=== PATIENT | female | born 1955 | race Caucasian/White ===

== ENCOUNTER 2024-02-01 00:13 | Emergency (ER) | payer OTHER ==
[2024-02-01] MEDS ORDERED: NOREPINEPHRINE BITARTRATE/D5W 4 MG/250 ML KIT IV ONE (00:34)
--- NOTE | 2024-02-01 01:22 | ER ---
Nurse's Notes [facility] Name: Alexandra Blankenship Age: 68 yrs Sex: Female : 1955 Arrival Date: 02/01/2024 Time: 00:13 Bed 3 Private MD: Diagnosis: Acute respiratory failure;Acute CVA with left hemiparesis, acute hypoxic respiratory failure, acute myocardial infarction, ventricular fibrillation, cardiac arrest Presentation: 01/31 00:19 Chief complaint: EMS states: patient toned out EMS due to feeling like she lost control al5 of her body. EMS arrive on scene and patient showing signs of stroke with L sided deficits. EMS arrives to facility and code stroke called. this nurse took patient immediately to CT scan with EMS while receiving report with doctor following. was notified [facility] was 30-40 minutes prior to EMS arrival to facility. while performing NIHSS assessment on the way to CT scan, noticed the patient had no movement whatsoever. assessed patient for pulse. patient had no pulse and CPR was initiated and called overhead. patient brought back to ER room 3 for ACLS interventions. 00:19 Coronavirus screen: At this time, the client does not indicate any symptoms associated al5 with coronavirus-19. Ebola Screen: No symptoms or risks identified at this time. An acute neurological deficit is present. The charge nurse has been notified. The patient has been moved to a treatment area. Pre-hospital glucose is not applicable to this patient. Risk Assessment: Do you want to hurt yourself or someone else? Unable to obtain. Onset of symptoms was January 31, 2024 at 23:45. 00:19 Method Of Arrival: EMS: [facility] al5 00:19 Acuity: CANDI 1 al5 00:19 Care prior to arrival: nonrebreather IV initiated. 20 GA, in the right antecubital area.al5 00:19 Compressions began at 00:19. al5 Triage Assessment: 00:19 The onset of the patients symptoms was January 31, 2024 at 23:45. General: Appears al5 unresponsive. Behavior is unresponsive. Pain: Unable to use pain scale. Patient is unresponsive. EENT: No signs and/or symptoms were reported regarding the EENT system. Neuro: Level of Consciousness is eyes open, but unresponsive.. Oriented to none Biomedical Engineering Technologist are none. no strength, unable to grab hands. Speech no speech. Cardiovascular: skin cool, pale, mottled, dry. Respiratory: patient on nonrebreather. GI: Abdomen is non-distended, obese. : No signs and/or symptoms were reported regarding the genitourinary system. Derm: Skin is dry, Skin is dusky, mottled, pale, Skin temperature is cool. Musculoskeletal: patient weakness in all extremities. - Family history:: not pertinent. Screenin:19 Abuse screen: Denies threats or abuse. Denies injuries from another. Nutritional al5 screening: No deficits noted. Tuberculosis screening: No symptoms or risk factors identified. 05:31 [facility] ED Fall Risk Assessment (Adult) Altered Elimination. ha1 Assessment: 00:20 Cardiac rhythm is. Cardiac rhythm is asystole. al5 00:20 CPR assessment: unresponsive, no respiratory effort, cyanotic, pale. al5 00:24 Reassessment: pulse check completed, patient asystole, CPR continued. al5 00:25 Reassessment: pulse check completed, patient PEA, CPR continued. al5 00:30 Reassessment: pulse check completed, patient in sinus tach. al5 00:46 Reassessment: patient going into vfib, code blue called overhead. CPR re-initiated. MD rodríguez at bedside. 00:46 Reassessment: patient shocked with 200 joules, CPR continued. al5 00:48 Reassessment: patient in vfib, patient shocked with 200 joules. CPR continued. al5 00:51 Reassessment: patient in vfib, patient shocked with 200 joules, CPR continued. al5 00:52 Reassessment: pulse check completed, patient in asystole, CPR continued. al5 00:55 Reassessment: pulse check completed, patient in PEA, CPR continued. al5 00:58 Reassessment: pulse checked completed, patient in PEA, CPR continued. al5 01:00 Reassessment: pulse check completed, patient in asystole. provider call time of al5 at this time. 05:01 Reassessment: contacted [employer], spoke with spring zavala. referral number al5 [id number]. Vital Signs: 00:19 Weight 90.72 kg; al5 00:30 BP 52 / 26; Pulse 128; Resp 34; Pulse Ox 97% on ETT ambu; al5 00:31 BP 50 / 29; Pulse 69; Pulse Ox 96% on ETT vent; al5 00:45 BP 114 / 30; Pulse 118; Pulse Ox 96% on ETT vent; al5 01:00 BP 0 / 0; Pulse 0; Resp 0; al5 Ravi Coma Score: 01:10 Eye Response: none(1). Motor Response: none(1). Verbal Response: none(1). Total: 3. sp4 ED Course: 00:16 Patient arrived in ED. al5 00:16 Patient has correct armband on for positive identification. nursing staff at bedside. ha1 00:18 Amrik Dela Cruz MD is Attending Physician. sp4 00:24 Inserted saline lock: 20 gauge in left antecubital area, using aseptic technique. al5 00:26 Assisted provider with intubation using 8.0 mm ETT via oral route. ET tube secured at al5 26cm at the teeth. Set up intubation tray. Intubated by Amrik Dela Cruz MD Placement verified by CO2 detector w/ + color change, auscultating bilateral breath sounds. 00:29 Assisted provider with central line placement. Set up central line tray. Triple lumen al5 line placed in right femoral. Line placed by Amrik Dela Cruz MD Placement verified by blood return, Dressed with Tegaderm, Blood was collected. Was handwashing/sanitizing done immediately prior to procedure? Yes. Was procedure site sterilized? Yes, with chlorhexidine. Was the site allowed to dry? Yes. Was local anesthetic and/or sedation utilized? No. During the procedure, did the Practitioner(s) maintain a sterile field? Yes. Were unused ports clamped during insertion? Yes. Was a 2nd qualified MD obtained after 3 unsuccessful insertion attempts? No. Was blood aspirated from each lumen? Yes. After the procedure, did the Practitioner(s) clean the site and apply a sterile dressing? Yes. 00:45 [address] [place] to get next of kin. kmf 00:48 XRAY Chest (1 view) In Process Unspecified. EDMS 01:21 Amrik Dela Cruz MD is Pronouncing Provider. sp4 01:45 Alize Glover RN is Primary Nurse. al5 01:55 Triage completed. al5 04:35 ordered crash cart. kmf Administered Medications: 00:20 Drug: EPINEPHrine 0.1mg/mL 1:10,000 1 mg IVP once Route: IVP; Site: right antecubital; al5 05:29 Follow up: Response: No adverse reaction al5 00:21 Drug: Calcium Chloride 1 grams IVP once Route: IVP; Site: right antecubital; al5 05:29 Follow up: Response: No adverse reaction al5 00:22 Drug: Sodium Bicarbonate 1 amp IVP once; (50 mL); equals 50 mEq Route: IVP; Site: right al5 antecubital; 05:30 Follow up: Response: No adverse reaction al5 00:23 Drug: D50W 50 ml IVP once; (1 amp) Route: IVP; Site: right antecubital; al5 05:30 Follow up: Response: No adverse reaction al5 00:24 Drug: EPINEPHrine 0.1mg/mL 1:10,000 1 mg IVP once Route: IVP; Site: left antecubital; al5 05:29 Follow up: Response: No adverse reaction al5 00:25 Drug: NS 0.9% IV 1000 ml IV at 1000 ml once; to be given as a bolus over 60 minutes al5 Route: IV; Rate: 1000 ml; Site: left antecubital; 00:45 Follow up: Response: No adverse reaction; IV Status: Completed infusion; IV Intake: al5 1000ml 00:25 Drug: Sodium Bicarbonate 1 amp IVP once; (50 mL); equals 50 mEq Route: IVP; Site: left al5 antecubital; 05:29 Follow up: Response: No adverse reaction al5 00:26 Drug: EPINEPHrine 0.1mg/mL 1:10,000 1 mg IVP once Route: IVP; Site: left antecubital; al5 05:29 Follow up: Response: No adverse reaction al5 00:29 Drug: Calcium Chloride 1 grams IVP once Route: IVP; Site: left antecubital; al5 05:29 Follow up: Response: No adverse reaction al5 00:29 Drug: Atropine 1 mg IVP once Route: IVP; Site: left antecubital; al5 05:29 Follow up: Response: No adverse reaction al5 05:29 Follow up: Response: No adverse reaction al5 00:36 Drug: Norepinephrine IV 0.1 mcg/kg/min IV at calculated rate See Administration al5 Instructions; (Standard concentration 4 mg / 250 mL D5W); Recommended max rate 3 mcg/kg/min; Titrate 0.05 mcg/kg/min as often as every 5 minutes to achieve goal (see titration policy); Goal parameter MAP greater than 65 mmHg. {Note: per MD, start at max rate.} Route: IV; Rate: calculated rate; Site: right femoral; 05:30 Follow up: Response: No adverse reaction; IV Status: Order to discontinue infusion al5 00:46 Drug: EPINEPHrine 0.1mg/mL 1:10,000 1 mg IVP once Route: IVP; Site: left antecubital; al5 05:28 Follow up: Response: No adverse reaction al5 00:46 Drug: amiodarone 300 mg IVP once Route: IVP; Site: left antecubital; al5 :28 Follow up: Response: No adverse reaction al5 00:49 Drug: EPINEPHrine 0.1mg/mL 1:10,000 1 mg IVP once Route: IVP; Site: left antecubital; al5 05:28 Follow up: Response: No adverse reaction al5 00:53 Drug: Atropine 1 mg IVP once Route: IVP; Site: left antecubital; al5 05:28 Follow up: Response: No adverse reaction al5 00:53 Drug: EPINEPHrine 0.1mg/mL 1:10,000 1 mg IVP once Route: IVP; Site: left antecubital; al5 05:28 Follow up: Response: No adverse reaction al5 00:56 Drug: EPINEPHrine 0.1mg/mL 1:10,000 1 mg IVP once Route: IVP; Site: left antecubital; al5 05:28 Follow up: Response: No adverse reaction al5 00:58 Drug: dopamine (400mg/250mL Premix) 5 mcg/kg/min IV at calculated rate See al5 Administration Instructions; Recommended max rate 20 mcg/kg/min; Titrate 2.5 mcg/kg/min as often as every 5 minutes to achieve goal (see titration policy); Goal parameter MAP greater than 65 mmHg. [*Low doses 1 to 4 mcg/kg/min may result in hypotension, decreased SVR*] {Note: per , start at max rate of 20 mcg/kg/min.} Route: IV; Rate: calculated rate; Site: right femoral; 05:28 Follow up: Response: No adverse reaction; IV Status: Order to discontinue infusion al5 02:33 Not Given (Patient ): ns 0.9% 1000 ml IV at 125 bolus Per protocol; to be given al5 as a bolus over 60 minutes 02:33 Not Given (Patient ): mupirocinointment 2 % 1 application Topical once al5 Intake: 00:45 IV: 1000ml; Total: 1000ml. al5 Outcome: 05:30 Outcome Patient al5 05:30 Patient : Time of 01:00 Pronounced by Amrik Dela Cruz MD Body released to [place] notified 05:30 Condition: 05:33 Patient left the ED. ha1 Signatures: Dispatcher [employer] EDMS Terra Lopez, RN RN ha1 Amrik Dela Cruz MD MD [facility] Marlyn Zabala [facility] Alize Glover RN RN al5 Corrections: (The following items were deleted from the chart) 02:26 01:00 BP 0 / 0; Pulse 0bpm; Resp 0bpm; Pulse Ox ET / Ambu; al5 al5 02:26 01:00 BP 0 / 0; Pulse 0bpm; Resp 0bpm; Pulse Ox ET / Ambu; al5 al5
--- NOTE | 2024-02-01 01:22 | EDPHYS ---
Physician Documentation [facility] Name: Alexandra Blankenship Age: 68 yrs Sex: Female : 1955 Arrival Date: 02/01/2024 Time: 00:13 Bed 3 Private MD: ED Physician Amrik Del aCruz HPI: 01/31 00:19 This 68 yrs old Female presents to ER via Unassigned with complaints of resp sp4 failure . 01:10 Patient arrived at 0015 with EMS with report of acute left-sided weakness associated sp4 with altered mental status and agitation. EMS reported patient called them for acute weakness on the left side starting about 40 minutes prior to arrival to the ER. Patient on arrival is unresponsive and slumped onto the left side. Patient on arrival has 20-gauge IV in the right AC. Patient was taken straight to CAT scan on EMS stretcher and code stroke was called at 0016. At 0019 it was noticed that patient had no pulses and agonal respiration and CPR was initiated at 0019. Patient was brought to the emergency department and ACLS efforts were initiated. Patient was emergently intubated on arrival to the ER stretcher. . - Family history:: not pertinent. ROS: 01:10 Constitutional: ROS positive for reported left-sided weakness and altered mental status sp4 01:10 All other systems are negative, 01:10 Unable to obtain ROS due to altered mental status, Exam: 01:10 Constitutional: This is a well developed, well nourished patient , patient is pale sp4 ill-appearing toxic appearing on arrival unresponsive GCS of 3. Head/Face: Normocephalic, atraumatic. Eyes: Pupils are dilated and fixed on the initial exam in the room #3. After the patient was moved from EMS stretcher to ER stretcher patient has no extraocular eye movements and dilated and fixed pupils. ENT: Nares patent. No nasal discharge, no septal abnormalities noted. Positive oropharyngeal secretions. Neck: Trachea midline, no thyromegaly or masses palpated, and no cervical lymphadenopathy. Chest/axilla: Normal chest wall appearance and motion. No deformity Cardiovascular: No palpable pulses in peripheral or central locations. Respiratory: Agonal respirations on arrival Abdomen/GI: Soft, no distention Back: No deformities Female : Normal external genitalia. Incontinent of bowel and bladder Skin: Warm, dry with peripheral and central cyanosis no rashes no signs of injuries MS/ Extremity: No deformities, no palpable peripheral pulses Neuro: Unresponsive, GCS of 3 additional exam is not possible 01:10 ECG was reviewed by the Attending Physician. EKG at 0038 wide QRS tachycardia left sp4 axis deviation, concerning for acute MO, ST elevations noted 2 , 3 aVF, V4 V5 V6 Vital Signs: 00:19 Weight 90.72 kg; al5 00:30 BP 52 / 26; Pulse 128; Resp 34; Pulse Ox 97% on ETT ambu; al5 00:31 BP 50 / 29; Pulse 69; Pulse Ox 96% on ETT vent; al5 00:45 BP 114 / 30; Pulse 118; Pulse Ox 96% on ETT vent; al5 01:00 BP 0 / 0; Pulse 0; Resp 0; al5 Ravi Coma Score: 01:10 Eye Response: none(1). Motor Response: none(1). Verbal Response: none(1). Total: 3. sp4 Procedures: 00:44 Intubation: Ventilated with 100% NRB prior to procedure. Intubated orally using S4 sp4 Glyde scope with 8.0 mm ETT. was successful on first attempt. Ventilated with Ambu bag. ventilator. Tube secured with ETT perez at center of mouth measured 26 cm at lip. Placement verified by CXR, CO2 detector with (+) color change, auscultating bilateral breath sounds, O2 saturation after procedure was 86 %. Patient tolerated well. Central Line: the site was prepped with in sterile fashion, a triple lumen catheter was inserted, in the right femoral vein, in 1 attempts. placement was verified, by blood return, Ultrasound guided CVL , the site was dressed with 4X4s, Tegaderm, using sterile technique, the patient tolerated the procedure, well. MDM: 00:44 Medical Screening Exam initiated sp4 01:10 Differential Diagnosis altered mental status, sepsis, flu, Hemorrhagic stroke, ischemic sp4 stroke , acute MO. 01:20 Data reviewed: vital signs, nurses notes, EMS record, radiologic studies. sp4 01:22 ED course: CPR was initiated at 0019 and CAT scan. On arrival to the emergency room sp4 patient was emergently intubated with size 8 ET tube and right femoral CVL placed emergently with ultrasound guidance. Full ACLS measures administered with multiple doses of IV epinephrine, 2 doses of sodium bicarbonate, 2 doses of calcium chloride, 1 dose of atropine IV, Levophed infusion and dopamine infusion. Also IV fluids given. Initially ROSC was obtained with wide-complex tachycardia at 134 bpm and palpable pulses. patient then manifested with several runs of ventricular fibrillation, and was defibrillated a total of 3 times. After aggressive resuscitation and ACLS medications patient manifested with global heart failure as evidenced by bedside ultrasound. At 0100 there are no palpable pulses there is PEA on the monitor, no signs of brainstem reflexes. Pupils are dilated and fixed patient is unresponsive, negative oculocephalic reflexes negative gag reflex. At 0100 further resuscitative efforts were stopped after total of 41 minutes of ACLS and CPR. Time of 0100 02/01/2024. . 02:29 ED course: EXAM: XR Chest, 1 View CLINICAL HISTORY: Chest pain. TECHNIQUE: Frontal view sp4 of the chest. COMPARISON: No relevant prior studies available. FINDINGS: Lungs: Coarsened interstitial markings. No focal consolidation. Pleural space: Unremarkable. No pneumothorax. Heart: Unremarkable. No cardiomegaly. Mediastinum: Unremarkable. Normal mediastinal contour. Bones/joints: Unremarkable. No acute fracture. Vasculature: Thoracic aortic atherosclerosis. Tubes, lines and devices: Endotracheal tube tip projects 2 cm proximal to the silke. IMPRESSION: 1. Endotracheal tube tip projects 2 cm proximal to the silke. 2. No acute disease.. 12 00:39 Order name: XRAY Chest (1 view) sp4 01/31 00:39 Order name: Cardiac monitoring; Complete Time: 02: sp4 01/31 00:39 Order name: EKG - Nurse/Tech; Complete Time: 02:28 sp4 01/31 00:39 Order name: IV Saline Lock; Complete Time: 02: sp4 01/31 00:39 Order name: O2 Per Protocol; Complete Time: 02: sp4 01/31 00:39 Order name: O2 Sat Monitoring; Complete Time: 02: sp4 01/31 00:41 Order name: Central Line Dressing Kit; Complete Time: 02: sp4 01/31 00:41 Order name: Central Line Kit; Complete Time: 02: sp4 01/31 00:41 Order name: Chlorhexidine prep; Complete Time: 02: sp4 01/31 00:41 Order name: Line Caps x3; Complete Time: sp4 01/31 00:41 Order name: NS Flushes x3; Complete Time: sp4 01/31 00:41 Order name: Sterile Gloves; Complete Time: sp4 01/31 00:41 Order name: Sterile Probe Cover; Complete Time: sp4 01/31 00:41 Order name: Intubation Setup; Complete Time: sp4 EC:10 Rate is 134 beats/min. Rhythm is regular. QRS interval is prolonged. ST Segment is sp4 elevated in leads II, III, aVF, V4, V5, V6. Clinical impression: Acute MO. Interpreted by me. Reviewed by me. Administered Medications: 00:20 Drug: EPINEPHrine 0.1mg/mL 1:10,000 1 mg IVP once Route: IVP; Site: right antecubital; al5 05:29 Follow up: Response: No adverse reaction al5 00:21 Drug: Calcium Chloride 1 grams IVP once Route: IVP; Site: right antecubital; al5 05:29 Follow up: Response: No adverse reaction al5 00:22 Drug: Sodium Bicarbonate 1 amp IVP once; (50 mL); equals 50 mEq Route: IVP; Site: right al5 antecubital; 05:30 Follow up: Response: No adverse reaction al5 00:23 Drug: D50W 50 ml IVP once; (1 amp) Route: IVP; Site: right antecubital; al5 05:30 Follow up: Response: No adverse reaction al5 00:24 Drug: EPINEPHrine 0.1mg/mL 1:10,000 1 mg IVP once Route: IVP; Site: left antecubital; al5 05:29 Follow up: Response: No adverse reaction al5 00:25 Drug: NS 0.9% IV 1000 ml IV at 1000 ml once; to be given as a bolus over 60 minutes al5 Route: IV; Rate: 1000 ml; Site: left antecubital; 00:45 Follow up: Response: No adverse reaction; IV Status: Completed infusion; IV Intake: al5 1000ml 00:25 Drug: Sodium Bicarbonate 1 amp IVP once; (50 mL); equals 50 mEq Route: IVP; Site: left al5 antecubital; 05:29 Follow up: Response: No adverse reaction al5 00:26 Drug: EPINEPHrine 0.1mg/mL 1:10,000 1 mg IVP once Route: IVP; Site: left antecubital; al5 05:29 Follow up: Response: No adverse reaction al5 00:29 Drug: Calcium Chloride 1 grams IVP once Route: IVP; Site: left antecubital; al5 05:29 Follow up: Response: No adverse reaction al5 00:29 Drug: Atropine 1 mg IVP once Route: IVP; Site: left antecubital; al5 05:29 Follow up: Response: No adverse reaction al5 05: Follow up: Response: No adverse reaction al5 00:36 Drug: Norepinephrine IV 0.1 mcg/kg/min IV at calculated rate See Administration al5 Instructions; (Standard concentration 4 mg / 250 mL D5W); Recommended max rate 3 mcg/kg/min; Titrate 0.05 mcg/kg/min as often as every 5 minutes to achieve goal (see titration policy); Goal parameter MAP greater than 65 mmHg. {Note: per MD, start at max rate.} Route: IV; Rate: calculated rate; Site: right femoral; 30 Follow up: Response: No adverse reaction; IV Status: Order to discontinue infusion al5 00:46 Drug: EPINEPHrine 0.1mg/mL 1:10,000 1 mg IVP once Route: IVP; Site: left antecubital; al5 05:28 Follow up: Response: No adverse reaction al5 00:46 Drug: amiodarone 300 mg IVP once Route: IVP; Site: left antecubital; al5 05:28 Follow up: Response: No adverse reaction al5 00:49 Drug: EPINEPHrine 0.1mg/mL 1:10,000 1 mg IVP once Route: IVP; Site: left antecubital; al5 05:28 Follow up: Response: No adverse reaction al5 00:53 Drug: Atropine 1 mg IVP once Route: IVP; Site: left antecubital; al5 05:28 Follow up: Response: No adverse reaction al5 00:53 Drug: EPINEPHrine 0.1mg/mL 1:10,000 1 mg IVP once Route: IVP; Site: left antecubital; al5 05:28 Follow up: Response: No adverse reaction al5 00:56 Drug: EPINEPHrine 0.1mg/mL 1:10,000 1 mg IVP once Route: IVP; Site: left antecubital; al5 05:28 Follow up: Response: No adverse reaction al5 00:58 Drug: dopamine (400mg/250mL Premix) 5 mcg/kg/min IV at calculated rate See al5 Administration Instructions; Recommended max rate 20 mcg/kg/min; Titrate 2.5 mcg/kg/min as often as every 5 minutes to achieve goal (see titration policy); Goal parameter MAP greater than 65 mmHg. [*Low doses 1 to 4 mcg/kg/min may result in hypotension, decreased SVR*] {Note: per MD, start at max rate of 20 mcg/kg/min.} Route: IV; Rate: calculated rate; Site: right femoral; 05:28 Follow up: Response: No adverse reaction; IV Status: Order to discontinue infusion al5 02:33 Not Given (Patient ): ns 0.9% 1000 ml IV at 125 bolus Per protocol; to be given al5 as a bolus over 60 minutes 02:33 Not Given (Patient ): mupirocinointment 2 % 1 application Topical once al5 Disposition: 01:20 . sp4 Disposition Summary: 02/01/24 01:22 Patient Notes: Location: [facility] sp4 Pronouncing Physician: Amrik Dela Cruz Time of : 01:00 02/01/2024 sp4 Diagnosis - Acute respiratory failure sp4 - Acute CVA with left hemiparesis, acute hypoxic respiratory failure, acute sp4 myocardial infarction, ventricular fibrillation, cardiac arrest Critical care time excluding procedures: 01:20 Critical care time: Bedside Care: 36 minutes. Total time: 36 minutes sp4 Signatures: Dispatcher [employer] Amrik Manzano MD MD sp4 Alize Glover RN RN al5 Corrections: (The following items were deleted from the chart) 00:40 00:40 BASIC METABOLIC PANEL+C.LAB.BRZ ordered. EDMS EDMS 00:40 00:40 CBC+H.LAB.BRZ ordered. EDMS EDMS 00:40 00:40 HEPATIC FUNCTION+C.LAB.BRZ ordered. EDMS EDMS 00:40 00:40 MAGNESIUM+C.LAB.BRZ ordered. EDMS EDMS 00:40 00:40 PROBNP+C.LAB.BRZ ordered. EDMS EDMS 00:40 00:40 PROTIME (+INR)+COAG.LAB.BRZ ordered. EDMS EDMS 00:40 00:40 Troponin High Sensitivity+C.LAB.BRZ ordered. EDMS EDMS 00:40 00:40 Chest Single View+RAD.RAD.BRZ ordered. EDMS EDMS 00: 00:42 C-REACTIVE PROTEIN+C.LAB.BRZ ordered. EDMS EDMS 00: 00:42 BLOOD CULTURE*+BA.LAB.BRZ ordered. EDMS EDMS 00:42 00:42 Arterial Blood Gas+RC.LAB.BRZ ordered. EDMS EDMS 01:25 00:19 CT-STROKE BRAIN W/O CONTRAST+CT.RAD.BRZ ordered. EDMS EDMS 01: 00:42 Head Angio+CT.RAD.BRZ ordered. EDMS EDMS 01: 00:43 Neck Angio+CT.RAD.BRZ ordered. EDMS EDMS 02: 00:39 Labs collected and sent ordered. sp4 al5 02: 00:41 Zhou ordered. sp4 al5 02: 00:41 Consent for central line completed ordered. sp4 al5 02: 00:41 NG Tube ordered. sp4 al5
[2024-02-01 05:59] VITALS: O2SAT 96
[2024-02-01 06:01] VITALS: BP 0/0
--- NOTE | 2024-02-01 06:35 | RAD REPORT ---
EXAM: XR Chest, 1 View CLINICAL HISTORY: Chest pain. TECHNIQUE: Frontal view of the chest. COMPARISON: No relevant prior studies available. FINDINGS: Lungs: Coarsened interstitial markings. No focal consolidation. Pleural space: Unremarkable. No pneumothorax. Heart: Unremarkable. No cardiomegaly. Mediastinum: Unremarkable. Normal mediastinal contour. Bones/joints: Unremarkable. No acute fracture. Vasculature: Thoracic aortic atherosclerosis. Tubes, lines and devices: Endotracheal tube tip projects 2 cm proximal to the silke. IMPRESSION: 1. Endotracheal tube tip projects 2 cm proximal to the silke. 2. No acute disease. Electronically signed by: Dino Marcelino MD 02/01/2024 01:21 AM [facility] Due to temporary technical issues with the PACS/Mind[employer] reporting system, reports are being ibis d by the in-house radiologist without review as a courtesy to ensure prompt reporting the interpreting radiologist is fully responsible for the content of the report. Transcribed Date/Time: 02/01/2024 6:35 AM
--- NOTE | 2024-02-02 15:48 | EKG ---
Test Date: 2024-02-01 Test Time: 00:38:19 [employer] Economics Manager: DAVID MEASUREMENT RESULTS: Intervals: Rate: 134 OR: QRSD: 192 QT: 344 QTc: 513 [place]: P: OR: QRS: -65 T: 87 INTERPRETIVE STATEMENTS: Wide QRS tachycardia Left axis deviation Nonspecific intraventricular block Inferior infarct, age undetermined Anterolateral infarct, possibly acute ACUTE LA / STEMI Abnormal ECG No previous ECG available for comparison Electronically Signed On 02-02-24 15:46:29 OPTOMECHANICAL ENGINEER by Nick Leija
== END 2024-02-01 05:33 ==
LOC: ER 00:13
DX: I46.9 Cardiac arrest, cause unspecified (principal); J96.01 Acute respiratory failure with hypoxia; I63.9 Cerebral infarction, unspecified; G81.94 Hemiplegia, unspecified affecting left nondominant side; I49.01 Ventricular fibrillation
CPT/HCPCS: 31500; 36556; 71045; 92950; 93005; 99291